=== PATIENT | female | born 1955 | race Caucasian/White ===

== ENCOUNTER → 2018-07-15 | Outpatient (CLI) | payer MEDICARE ==
[2015-02-11 19:15] VITALS: BP 109/60
[~2018-07-15] MED LIST: MORPHINE SULFATE 4 MG/ML VIAL. IV ONE; MORPHINE SULFATE 4 MG/ML VIAL. ONE; NORMAL SALINE IV ONE; SINCALIDE IV ONE
--- NOTE | 2018-07-15 08:02 | RAD ---
EXAM: Abdomen sonogram. HISTORY: Nausea and vomiting. TECHNIQUE: Sonographic imaging of the abdomen was performed. COMPARISON: CT dated 01/20/2015. FINDINGS: The liver is normal in size. No focal hepatic lesion is seen. The pancreas is partially obscured due to bowel gas. The inferior vena cava is patent. The aorta is not formally assessed. The right kidney is unremarkable. The gallbladder is unremarkable. The common bile duct is normal in caliber. IMPRESSION: Unremarkable abdomen sonogram. Electronically signed by: Shayla Barragan MD (07/15/2018 7:59 AM) [id number]
--- NOTE | 2018-07-15 11:53 | RAD ---
EXAM: Nuclear hepatobiliary scan. HISTORY: Pain. TECHNIQUE: Following intravenous administration of 5.0 mCi Tc 99m Choletec, anterior images of the abdomen were obtained at five minute intervals through one hour. Subsequently, 1.84 mcg CCK was administered and additional images to assess gallbladder ejection fraction were obtained. FINDINGS: There is prompt radiotracer uptake by the liver. No focal defect is seen. There is normal excretion into the biliary tree. The gallbladder is visualized within 5 minutes and there is free flow into the duodenum. The gallbladder ejection fraction is 88 percent. IMPRESSION: Normal radionuclide biliary scan. Electronically signed by: Shayla Barragan MD (07/15/2018 11:50 AM) [id number]
== END | disposition home or self-care (01) ==
LOC: US 07:05
PROVIDERS: ATTEND Internal Medicine Gastroenterology
DX: R11.2 Nausea with vomiting, unspecified (principal); R19.7 Diarrhea, unspecified
CPT/HCPCS: 76705; 78227; A9537; J2805

== ENCOUNTER → 2018-09-23 | Outpatient (CLI) | payer MEDICARE ==
[2015-02-11 19:15] VITALS: BP 109/60
[~2018-09-23] MED LIST changes: +BARIUM SULFATE 340 GM SUSPENSION. PO ONE; +BARIUM SULFATE 60% 355 ML SUSP PO ONE; -MORPHINE SULFATE 4 MG/ML VIAL. IV ONE; -MORPHINE SULFATE 4 MG/ML VIAL. ONE; -NORMAL SALINE IV ONE; +SIMETHICONE/SOD BICARB/CITRIC ACID PACKET. PO ONE; -SINCALIDE IV ONE
--- NOTE | 2018-09-23 12:35 | RAD ---
Examination: UPPER GI WO KUB History: slow emptying stomach, nausea and vomiting, abdominal pain. stomach surgery 2015. Comparison/Correlation: None Findings: Air-contrast upper GI exam was performed. Fluoroscopy was utilized for 2 minutes. Total of 22 images were acquired. Esophageal motility is other than mild presbyesophagus. Small sliding hiatal hernia noted. Gastroesophageal reflux to the upper thoracic esophageal level is noted. Contrast flows freely into the stomach. The stomach is somewhat small in size presumably related to reported surgical history. Along the distal pyloric aspect, there are 2 diverticuli which may be present. The proximal duodenum is noted in the left upper quadrant. No suspicious filling defects identified. Duodenal bulb is not definitely delineated. Correlate with surgical history. Impression: Small hiatal hernia. Gastroesophageal reflux. Small diverticuli along the distal greater curvature of the stomach suspected. Electronically signed by: Pastor Da Silva MD (09/23/2018 12:32 PM) [facility]
== END | disposition home or self-care (01) ==
LOC: RAD 08:54
PROVIDERS: ATTEND Internal Medicine Gastroenterology
DX: K44.9 Diaphragmatic hernia without obstruction or gangrene (principal); K21.9 Gastro-esophageal reflux disease without esophagitis; Z88.2 Allergy status to sulfonamides; Z88.0 Allergy status to penicillin; Z88.5 Allergy status to narcotic agent
CPT/HCPCS: 74240

== ENCOUNTER → 2020-06-14 | Outpatient (CLI) | payer MEDICARE ==
[2015-02-11 19:15] VITALS: BP 109/60
--- NOTE | 2020-06-14 13:51 | KCIC ---
UPPER GI STUDY 06/14/2020. Reason for study: Reflux, vomiting Comparison studies: None. Technique: A preliminary family law paralegal radiograph of the abdomen was first obtained. Then utilizing air contr ast technique with both single contrast and double contrast barium preparations, evaluation of the di stal esophagus, stomach, and duodenum was performed in the upright, supine, and prone positions. Findings: The preliminary family law paralegal film revealed a normal bowel gas pattern. Barium swallow was performed without difficulty. Esophageal peristalsis and motility were normal in b oth the upright and prone positions. No mucosal abnormalities. Stomach was within normal limits for s ize, shape, and position within the abdominal cavity. No mass or ulcer crater within the stomach, wit h normal gastric folds. Small hiatal hernia. No significant gastroesophageal reflux identified. Duode nal Limited evaluation of the duodenal bulb. Duodenal sweep is normal in appearance without diverticu lum or suspicious mucosal abnormality. Fluoroscopy time: 3 minutes, 4 seconds Number of images: 23 IMPRESSION: 1. Limited evaluation of the duodenal bulb. 2. No suspicious mucosal abnormality is identified. If there is persistent clinical concern, further evaluation with endoscopy could be of benefit. 3. Small hiatal hernia. Electronically signed by: Merissa Hernandez MD (06/14/2020 1:48 PM) [id number]
== END ==
LOC: KCIC 08:14
PROVIDERS: ATTEND Internal Medicine Gastroenterology
DX: K44.9 Diaphragmatic hernia without obstruction or gangrene (principal); K21.9 Gastro-esophageal reflux disease without esophagitis; R11.2 Nausea with vomiting, unspecified
CPT/HCPCS: 74240

== ENCOUNTER → 2021-03-19 | Outpatient (CLI) | payer MEDICARE ==
[2015-02-11 19:15] VITALS: BP 109/60
[~2021-03-19] MED LIST changes: -BARIUM SULFATE 340 GM SUSPENSION. PO ONE; -BARIUM SULFATE 60% 355 ML SUSP PO ONE; +IOHEXOL 240 MG/ML 50ML VIAL. PO ONE; -SIMETHICONE/SOD BICARB/CITRIC ACID PACKET. PO ONE
--- NOTE | 2021-03-19 11:06 | KCIC ---
CT of the abdomen and pelvis with oral contrast only 03/19/2021 INDICATION: Episodic abdominal pain. COMPARISON STUDY: Abdominal ultrasound July 15, 2018. Hepatobiliary scan July 15, 2018. CT ab domen and pelvis January 20, 2015. TECHNIQUE: Multidetector CT imaging of the abdomen and pelvis was performed with oral contrast only. Visualized lung bases demonstrate mild atelectasis. Coronary calcification is noted. Small hypodensit y in the superior right liver is unchanged. The liver is otherwise unremarkable. Probable small galls tones noted in the dependent portion of the gallbladder. The adrenal glands are unremarkable. Spleen is unremarkable. Kidneys demonstrate no nephrolithiasis or obstructive uropathy. Pancreas is somewhat atrophic but otherwise unremarkable. No overt bowel obstruction is identified. There are postoperati ve changes following gastric bypass procedure. At the junction of the sigmoid colon and rectum there is apparent bowel wall thickening. Evaluation i s limited without IV contrast. Distal colonic diverticulosis is present. Contrast does not appear to extend beyond this point. Minimal associated fat stranding is present. No free fluid or free air seen in the abdomen or pelvis. Hysterectomy noted. The bladder is decompres sed limiting evaluation. Degenerative changes noted at the lumbosacral junction without evidence of a cute osseous abnormality. IMPRESSION: 1. Apparent bowel wall thickening at the junction of the sigmoid colon and rectum with mild associate d adjacent fat stranding. Differential considerations include mild diverticulitis/colitis. Short-term follow-up endoscopy is recommended to exclude a mean malignant etiology. 2. Cholelithiasis CT DOSING PQRS STATEMENT: One or more of the following individualized dose reduction techniques were utilized for this examinat ion: 1. Automated exposure control 2. Adjustment of the mA and/or kV according to patient size 3. Use of iterative reconstruction technique Electronically signed by: Ermias Lovell MD (03/19/2021 11:04 AM) [id number]
== END ==
LOC: KCIC CT 08:41
PROVIDERS: ATTEND Internal Medicine Gastroenterology
DX: K80.20 Calculus of gallbladder without cholecystitis without obstruction (principal); K63.89 Other specified diseases of intestine; J98.11 Atelectasis; I25.10 Atherosclerotic heart disease of native coronary artery without angina pectoris; K57.30 Diverticulosis of large intestine without perforation or abscess without bleeding; M47.817 Spondylosis without myelopathy or radiculopathy, lumbosacral region
CPT/HCPCS: 74176; 82565; Q9966